=== PATIENT | male | born 1960 | race Caucasian/White ===

== ENCOUNTER 2022-12-16 16:01 | Inpatient (IN) | payer MEDICARE ==
[~2022-12-16] VITALS: Ht 182.9 cm; Wt 159.1 kg
[2022-12-16 16:47] LABS: BASOPHILS % (AUTO) 0.3 % (0-1); EOSINOPHILS # (AUTO) 0.1 X10'3 (0-0.9); EOSINOPHILS % (AUTO) 1.6 % (0-6); LYMPHOCYTES # (AUTO) 2.1 X10'3 (1.1-4.8); LYMPHOCYTES % (AUTO) 21.9 % (21-51); MEAN CORPUSCULAR HEMOGLOBIN 26.5 PG (27.0-31.0); MEAN CORPUSCULAR HGB CONC 32.9 g/dL (33.0-36.5); MEAN CORPUSCULAR VOLUME 80.7 FL (78-98); MEAN PLATELET VOLUME 8.1 FL (7.4-10.4); MONOCYTES # (AUTO) 0.7 X10'3 (0-0.9); MONOCYTES % (AUTO) 7.4 % (2-12); NEUTROPHILS # (AUTO) 6.4 X10'3 (1.8-7.7); NEUTROPHILS % (AUTO) 68.8 % (42-75); PLATELET COUNT 292 X10'3 (140-440); RED BLOOD COUNT 2.62 X10'6 (4.70-6.10); RED CELL DISTRIBUTION WIDTH 16.4 % (11.5-14.5); WHITE BLOOD COUNT 9.4 X10'3 (4.5-11.0)
[2022-12-16 16:50] LABS: HEMATOCRIT 21.2 % (42.0-52.0)
--- NOTE | 2022-12-16 16:59 | NUR ---
RN ATTEMPTING TO US IV AT THIS TIME. PT IS A HARD STICK.
[2022-12-16 17:00] LABS: ALANINE AMINOTRANSFERASE 67 U/L (12-78); ALBUMIN 3.2 G/DL (3.4-5.0); ALBUMIN/GLOBULIN RATIO 0.9 (1.1-1.5); ALKALINE PHOSPHATASE 76 IU/L (46-116); ANION GAP 6 (8-16); ASPARTATE AMINO TRANSFERASE 36 U/L (10-37); BILIRUBIN,TOTAL 0.2 MG/DL (0.1-1.0); BLOOD UREA NITROGEN 22 MG/DL (7-18); BUN/CREATININE RATIO 19.5 (10.0-20.0); CALCIUM 8.5 MG/DL (8.5-10.1); CHLORIDE 104 MMOL/L (99-107); CREATININE 1.13 MG/DL (0.60-1.10); GLUCOSE 138 MG/DL (70-104); POTASSIUM 4.2 MMOL/L (3.5-5.1); SODIUM 139 MMOL/L (135-145); TOTAL CARBON DIOXIDE 29.4 MMOL/L (24-32); TOTAL PROTEIN 6.6 G/DL (6.4-8.2); eCRCL 72 ML/MIN; eGFR 65 ML/MIN
[2022-12-16 17:06] LABS: PRO BRAIN NATRIURETIC PEPTIDE 668 PG/ML (0-125)
[2022-12-16] MEDS ORDERED: pantoprazole 40mg IV 80 MG in normal saline 100ml IV soln 100 ML IV ONE (17:40)
--- NOTE | 2022-12-16 17:46 | NUR ---
PT REPORTS HIS URINE HAS BEEN DARK AND HAS A FOUL SMELL. RN ENTERED ORD FOR UA.
[2022-12-16 17:53] LABS: BILIRUBIN,URINE NEGATIVE (Neg); CLARITY,URINE SLIGHTLY CLOUDY (Clear); COLOR,URINE YELLOW (Yellow); GLUCOSE, URINE NEGATIVE (Neg); KETONES,URINE NEGATIVE (Neg); LEUKOCYTE ESTERASE ,URINE NEGATIVE (Neg); NITRITES, URINE NEGATIVE (Neg); OCCULT BLOOD,URINE NEGATIVE (Neg); PROTEIN,URINE NEGATIVE (Neg); UROBILINOGEN,URINE 0.2 E.U/dL (0.2-1.0)
[2022-12-16 17:54] LABS: UA COLLECTION TYPE CLN CATCH MIDSTREAM
[2022-12-16 17:59] LABS: SQUAMOUS EPITHELIAL CELL,UR NONE SEEN /LPF (FEW)
[2022-12-16 18:00] LABS: BACTERIA,URINE 4+ /HPF (Neg); RBC,URINE 0-2 /HPF (0-2); WBC,URINE 0-4 /HPF (0-4)
[2022-12-16] MEDS ORDERED: CefTRIAXone 2gm/D5W 50ml BAG 50 ML IV ONE (18:25)
--- NOTE | 2022-12-16 18:46 | NUR ---
RN CALLED PHARM AND REQ THAT PROTONIX ORD BE CORRECTED SO IT MAY BE OBTAINED FROM THE [facility].
[2022-12-16] MEDS ORDERED: acetaminophen 325mg tablet PO PRN (18:50)
[2022-12-16] MEDS ORDERED: potassium Cl 20 mEq SR tablet PO PRN ×2 (18:50)
[2022-12-16] MEDS ORDERED: potassium Cl 40MEQ/1/2NS 520ml 520 ML IV PRN (18:50)
[2022-12-16] MEDS ORDERED: PERFLUTREN PROTEIN-A MICROSPHR (Optison) 0.22 MG/ML 3ML VIAL IV ONE (18:50)
[2022-12-16] MEDS ORDERED: magnesium Cl slow-release 64mg tablet PO PRN (18:50)
[2022-12-16] MEDS: normal saline 1000ml 1,000 ML IV SCH (18:50)
[2022-12-16] MEDS ORDERED: magnesium 4gm in 100ml NS 100 ML IV PRN (18:50)
[2022-12-16] MEDS ORDERED: magnesium 2GM in 50ml NS 50 ML IV PRN (18:50)
[2022-12-16] MEDS ORDERED: ondansetron/PF 4mg/2ml inj IV PRN (18:50)
[2022-12-16 18:53] LABS: APTT 26 SECONDS (22-32); PROTHROMBIN TIME 10.6 SECONDS (9.0-12.0)
--- NOTE | 2022-12-16 18:54 | NUR ---
RN INFORMED IV MEDS NEED TO BE GIVEN
[2022-12-16 19:02] LABS: PRO BRAIN NATRIURETIC PEPTIDE 691 PG/ML (0-125); RED BLOOD COUNT 2.61 X10'6 (4.70-6.10); RETICULOCYTE % (AUTO) 3.3 % (0.5-1.5)
[2022-12-16 19:17] LABS: ETHANOL < 10 MG/DL (<10)
[2022-12-16] MEDS: K and/or MAG REPLACEMENT MC SCH (20:00)
[2022-12-16] MEDS: carVEDilol 3.125mg tablet PO SCH (20:00)
[2022-12-16] MEDS: furosemide 40mg/4ml inj IV SCH (20:00)
[2022-12-16] MEDS: hydrALAZINE 20mg/ml inj. IV SCH (20:02)
[2022-12-16 20:24] VITALS: BP 179/90; PULSE 82; RESP 22; TEMP 98.7
[2022-12-16 20:40] VITALS: BP 172/93; PULSE 81; RESP 24; TEMP 98.8
[2022-12-16 21:05] VITALS: BP 117/99; PULSE 85; RESP 20; TEMP 98.6
[2022-12-16 21:37] VITALS: BP 121/84; PULSE 89; RESP 20; TEMP 98.6
[2022-12-16 22:16] VITALS: BP 136/100; PULSE 84; RESP 20; TEMP 98.6
--- NOTE | 2022-12-16 22:49 | NUR ---
PLACED PT ONTO IN-PATIENT BED
[2022-12-17] VITALS (7 sets, daily range): BP systolic 146–181; BP diastolic 75–98; PULSE 78–87; RESP 13–24; TEMP 97.2–98.9; O2SAT 93–98
[2022-12-17] MEDS: hydrALAZINE 20mg/ml inj. IV SCH ×4 (02:00→22:40)
[2022-12-17] MEDS: normal saline 1000ml 1,000 ML IV SCH ×2 (06:37→14:50)
[2022-12-17 07:45] LABS: ANION GAP 7 (8-16); BLOOD UREA NITROGEN 15 MG/DL (7-18); BUN/CREATININE RATIO 15.2 (10.0-20.0); CALCIUM 8.2 MG/DL (8.5-10.1); CHLORIDE 105 MMOL/L (99-107); CREATININE 0.99 MG/DL (0.60-1.10); GLUCOSE 135 MG/DL (70-104); MAGNESIUM 1.9 MG/DL (1.5-2.4); POTASSIUM 3.9 MMOL/L (3.5-5.1); SODIUM 140 MMOL/L (135-145); TOTAL CARBON DIOXIDE 28.2 MMOL/L (24-32); eCRCL 83 ML/MIN; eGFR 76 ML/MIN
[2022-12-17] MEDS: K and/or MAG REPLACEMENT MC SCH ×2 (08:00→20:00)
[2022-12-17 08:01] LABS: BASOPHILS % (AUTO) 0.3 % (0-1); EOSINOPHILS # (AUTO) 0.1 X10'3 (0-0.9); EOSINOPHILS % (AUTO) 1.2 % (0-6); HEMATOCRIT 23.5 % (42.0-52.0); HEMOGLOBIN 7.6 g/dl (14.0-17.9); LYMPHOCYTES % (AUTO) 23.5 % (21-51); MEAN CORPUSCULAR HEMOGLOBIN 26.1 PG (27.0-31.0); MEAN CORPUSCULAR HGB CONC 32.3 g/dL (33.0-36.5); MEAN PLATELET VOLUME 8.4 FL (7.4-10.4); MONOCYTES # (AUTO) 0.7 X10'3 (0-0.9); MONOCYTES % (AUTO) 8.1 % (2-12); NEUTROPHILS # (AUTO) 5.7 X10'3 (1.8-7.7); NEUTROPHILS % (AUTO) 66.9 % (42-75); PLATELET COUNT 280 X10'3 (140-440); RED CELL DISTRIBUTION WIDTH 16.5 % (11.5-14.5); WHITE BLOOD COUNT 8.5 X10'3 (4.5-11.0)
[2022-12-17 09:03] LABS: OCCULT BLOOD STOOL NEGATIVE (Neg)
[2022-12-17] MEDS: CefTRIAXone/D5W-Rocephin 1gm 50 ML IV SCH (10:42)
[2022-12-17] MEDS: carVEDilol 3.125mg tablet PO SCH (10:43)
[2022-12-17] MEDS: furosemide 40mg/4ml inj IV SCH (10:45)
[2022-12-17] MEDS: traMADol 50MG tablet PO PRN (11:04)
--- NOTE | 2022-12-17 11:39 | NUR ---
PAGER ID: [phone] MESSAGE: Cameron Marianela [id number] bp HIGH 160S-180S. iv LASIX GIVEN. AFTERWARDS IV HYDRALAZINE GIVEN. PTS HR OCCAISIONALLY DROPS TO HIGH 30S. LOWEST 36. GAUDENCIO 6541
--- NOTE | 2022-12-17 11:51 | NUR ---
PAGER ID: [phone] MESSAGE: Cameron WILSON [id number] pt c/o 08/25 intermittent L chest pain radiating to his shoulder. States it's difficult to breathe " like hes breathing in smoke." SA02 stable. 02 @L applied for SOB. EKG? Ashlee 1827
--- NOTE | 2022-12-17 12:00 | NUR ---
Hospitalist viewed old and new stat EKG - no new orders.
--- NOTE | 2022-12-17 12:08 | NUR ---
Charge paged for rapid on pt. Hospitalist aware.
[2022-12-17 12:39] LABS: BASOPHILS # (AUTO) 0.1 X10'3 (0-0.2); BASOPHILS % (AUTO) 0.5 % (0-1); EOSINOPHILS # (AUTO) 0.1 X10'3 (0-0.9); EOSINOPHILS % (AUTO) 1.2 % (0-6); HEMATOCRIT 26.4 % (42.0-52.0); HEMOGLOBIN 8.5 g/dl (14.0-17.9); LYMPHOCYTES # (AUTO) 2.2 X10'3 (1.1-4.8); LYMPHOCYTES % (AUTO) 20.8 % (21-51); MEAN CORPUSCULAR HEMOGLOBIN 25.8 PG (27.0-31.0); MEAN CORPUSCULAR HGB CONC 32.2 g/dL (33.0-36.5); MEAN CORPUSCULAR VOLUME 80.2 FL (78-98); MEAN PLATELET VOLUME 8.3 FL (7.4-10.4); MONOCYTES # (AUTO) 1.1 X10'3 (0-0.9); MONOCYTES % (AUTO) 10.2 % (2-12); NEUTROPHILS # (AUTO) 7.1 X10'3 (1.8-7.7); NEUTROPHILS % (AUTO) 67.3 % (42-75); PLATELET COUNT 330 X10'3 (140-440); RED BLOOD COUNT 3.29 X10'6 (4.70-6.10); RED CELL DISTRIBUTION WIDTH 16.7 % (11.5-14.5); WHITE BLOOD COUNT 10.5 X10'3 (4.5-11.0)
[2022-12-17 12:53] LABS: ANION GAP 5 (8-16); BLOOD UREA NITROGEN 15 MG/DL (7-18); BUN/CREATININE RATIO 15.3 (10.0-20.0); CALCIUM 8.7 MG/DL (8.5-10.1); CHLORIDE 103 MMOL/L (99-107); CREATININE 0.98 MG/DL (0.60-1.10); GLUCOSE 137 MG/DL (70-104); POTASSIUM 3.6 MMOL/L (3.5-5.1); SODIUM 138 MMOL/L (135-145); TOTAL CARBON DIOXIDE 30.4 MMOL/L (24-32); eCRCL 84 ML/MIN; eGFR 77 ML/MIN
[2022-12-17 12:54] LABS: ALANINE AMINOTRANSFERASE 63 U/L (12-78); ALBUMIN 3.4 G/DL (3.4-5.0); ALBUMIN/GLOBULIN RATIO 0.9 (1.1-1.5); ALKALINE PHOSPHATASE 74 IU/L (46-116); ASPARTATE AMINO TRANSFERASE 30 U/L (10-37); BILIRUBIN,TOTAL 0.4 MG/DL (0.1-1.0); TOTAL PROTEIN 7.1 G/DL (6.4-8.2)
[2022-12-17] MEDS ORDERED: NO HOME MEDS (15:12)
--- NOTE | 2022-12-17 15:38 | NUR ---
7.2 HR pause. Hospitalist aware. States ok to give IV hydralazine. She will consult cardio.
--- NOTE | 2022-12-17 17:31 | NUR ---
PAGER ID: [phone] MESSAGE: Andrew Ivy [id number] Pt. c/o chest pain again. please call [phone] Ashlee
[2022-12-17] MEDS ORDERED: nitroGLYCERIN 0.4mg SUBLingual tab SL PRN (17:35)
[2022-12-17] MEDS ORDERED: morphine 2 MG/ML inj. syringe IV ONE ×2 (17:35→18:45)
[2022-12-17] MEDS ORDERED: regadenoson 0.4mg/5ml syringe IV ONE (17:35)
--- NOTE | 2022-12-17 17:37 | NUR ---
EKG sent to fax number requested by hospitalist - [phone]
--- NOTE | 2022-12-17 17:40 | NUR ---
states she didn't get EKG through fax sent through text without pt. info.
--- NOTE | 2022-12-17 18:00 | NUR ---
pT. REFUSING ANY NITRO. STATES IT MAKES HIM TOO NAUSEOUS
[2022-12-17] MEDS ORDERED: hydrALAZINE 20mg/ml inj. IV ONE (18:45)
--- NOTE | 2022-12-17 18:54 | NUR ---
rEPORT GIVEN TO Celia AMBROCIO.
--- NOTE | 2022-12-17 18:55 | NUR ---
Patient in room PCU 3017. I have received report from Austin AMBROCIO, and had the opportunity to ask questions and assume patient care.
[2022-12-17] MEDS ORDERED: cloNIDine 0.1 mg tablet PO ONE (19:05)
[2022-12-18] VITALS (16 sets, daily range): BP systolic 108–204; BP diastolic 65–90; PULSE 86–104; RESP 15–24; TEMP 97.2–98.9; O2SAT 91–96
[2022-12-18] MEDS: hydrALAZINE 20mg/ml inj. IV SCH ×4 (02:20→22:10)
[2022-12-18] MEDS: traMADol 50MG tablet PO PRN (02:34)
--- NOTE | 2022-12-18 04:59 | NUR ---
Spoke with provider Abrahamk regarding pt having HTN throughout the night and all antihypertensive meds given and ineffective. Provider gave new order for 5mg Norvasc PO one time only. NRBO.
[2022-12-18] MEDS ORDERED: amLODIPine 5mg tablet PO ONE (05:00)
--- NOTE | 2022-12-18 06:30 | NUR ---
Problems reprioritized. Patient report given, questions answered & plan of care reviewed with Dewayne RN and ismael AMBROCIO.
--- NOTE | 2022-12-18 06:45 | NUR ---
Patient in room PCU 3017. I have received report from Tri AMBROCIO and had the opportunity to ask questions and assume patient care.
[2022-12-18 07:23] LABS: BASOPHILS % (AUTO) 0.4 % (0-1); EOSINOPHILS # (AUTO) 0.1 X10'3 (0-0.9); EOSINOPHILS % (AUTO) 0.5 % (0-6); HEMATOCRIT 25.9 % (42.0-52.0); HEMOGLOBIN 8.3 g/dl (14.0-17.9); LYMPHOCYTES # (AUTO) 2.1 X10'3 (1.1-4.8); LYMPHOCYTES % (AUTO) 20.1 % (21-51); MEAN CORPUSCULAR HEMOGLOBIN 25.9 PG (27.0-31.0); MEAN CORPUSCULAR VOLUME 80.8 FL (78-98); MEAN PLATELET VOLUME 8.2 FL (7.4-10.4); MONOCYTES # (AUTO) 0.8 X10'3 (0-0.9); MONOCYTES % (AUTO) 7.9 % (2-12); NEUTROPHILS # (AUTO) 7.3 X10'3 (1.8-7.7); NEUTROPHILS % (AUTO) 71.1 % (42-75); PLATELET COUNT 286 X10'3 (140-440); RED CELL DISTRIBUTION WIDTH 16.8 % (11.5-14.5); WHITE BLOOD COUNT 10.2 X10'3 (4.5-11.0)
[2022-12-18 07:38] LABS: ALBUMIN 3.2 G/DL (3.4-5.0); ANION GAP 7 (8-16); BLOOD UREA NITROGEN 14 MG/DL (7-18); BUN/CREATININE RATIO 16.1 (10.0-20.0); CALCIUM 8.3 MG/DL (8.5-10.1); CHLORIDE 102 MMOL/L (99-107); CREATININE 0.87 MG/DL (0.60-1.10); GLUCOSE 122 MG/DL (70-104); POTASSIUM 3.7 MMOL/L (3.5-5.1); SODIUM 138 MMOL/L (135-145); TOTAL CARBON DIOXIDE 29.3 MMOL/L (24-32); eCRCL 94 ML/MIN; eGFR 88 ML/MIN
[2022-12-18] MEDS: K and/or MAG REPLACEMENT MC SCH ×2 (08:00→20:00)
[2022-12-18] MEDS: furosemide 40mg/4ml inj IV SCH (08:21)
[2022-12-18] MEDS: CefTRIAXone/D5W-Rocephin 1gm 50 ML IV SCH (08:22)
[2022-12-18] MEDS ORDERED: fentaNYL/PF 50MCG/1 ML 2ML syringe ONE (18:32)
[2022-12-18] MEDS ORDERED: midazolam 1 mg/ML 2ml injection ONE (18:33)
[2022-12-18] MEDS ORDERED: ceFAZolin 1000mg inj ONE ×2 (18:33→19:03)
[2022-12-18] MEDS ORDERED: LIDOCAINE 2%/EPI 1:100,000 inj. Multi-dose 20 ML VIAL ONE (18:33)
--- NOTE | 2022-12-18 18:33 | NUR ---
Problems reprioritized. Patient report given, questions answered & plan of care reviewed with Tri AMBROCIO.
--- NOTE | 2022-12-18 19:00 | NUR ---
pt left floor to seed laboratory assistant.
--- NOTE | 2022-12-18 20:15 | NUR ---
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 Izabel Rodriguez webmethods architect. Pt returned to floor per baseline.
[2022-12-18] MEDS ORDERED: HYDROcodone/acetaminophen 5mg/325mg tablet PO PRN (21:35)
[2022-12-18] MEDS: HYDROcodone/acetaminophen 10/325mg tab PO PRN (22:53)
[2022-12-19 00:45] VITALS: BP 150/76; PULSE 90; RESP 20
[2022-12-19 01:45] VITALS: BP 138/75; PULSE 91; RESP 20
[2022-12-19] MEDS: hydrALAZINE 20mg/ml inj. IV SCH ×3 (02:03→14:00)
[2022-12-19] MEDS: ceFAZolin/D5W- 1GM premix 50 ML IV SCH ×2 (02:04→10:46)
[2022-12-19] MEDS: traMADol 50MG tablet PO PRN (02:13)
[2022-12-19 03:43] VITALS: BP 143/74; PULSE 98; RESP 24; TEMP 97.1; O2SAT 93
[2022-12-19] MEDS: HYDROcodone/acetaminophen 10/325mg tab PO PRN (05:18)
[2022-12-19] MEDS: normal saline 1000ml 1,000 ML IV SCH (05:54)
[2022-12-19 06:00] VITALS: BP 155/64; PULSE 75; RESP 17; TEMP 98.6; O2SAT 92
--- NOTE | 2022-12-19 06:30 | NUR ---
I have received report from LOLLY Bartlett and had the opportunity to ask questions and assume patient care. No distress at this time.
--- NOTE | 2022-12-19 06:40 | NUR ---
Problems reprioritized. Patient report given, questions answered & plan of care reviewed with Janelle HARRISON. Pt stable at shift change.
[2022-12-19 07:31] LABS: HEMOGLOBIN 7.9 g/dl (14.0-17.9); MONOCYTES # (AUTO) 1.1 X10'3 (0-0.9); NEUTROPHILS # (AUTO) 9.9 X10'3 (1.8-7.7); RED CELL DISTRIBUTION WIDTH 17.5 % (11.5-14.5); WHITE BLOOD COUNT 12.9 X10'3 (4.5-11.0)
[2022-12-19 07:33] LABS: BASOPHILS % (AUTO) 0.2 % (0-1); EOSINOPHILS % (AUTO) 0.2 % (0-6); HEMATOCRIT 25.1 % (42.0-52.0); LYMPHOCYTES # (AUTO) 1.9 X10'3 (1.1-4.8); LYMPHOCYTES % (AUTO) 14.4 % (21-51); MEAN CORPUSCULAR HEMOGLOBIN 25.2 PG (27.0-31.0); MEAN CORPUSCULAR HGB CONC 31.5 g/dL (33.0-36.5); MEAN PLATELET VOLUME 8.3 FL (7.4-10.4); MONOCYTES % (AUTO) 8.4 % (2-12); NEUTROPHILS % (AUTO) 76.8 % (42-75); PLATELET COUNT 296 X10'3 (140-440); RED BLOOD COUNT 3.13 X10'6 (4.70-6.10)
[2022-12-19 07:44] LABS: ALBUMIN 3.1 G/DL (3.4-5.0); ANION GAP 5 (8-16); BLOOD UREA NITROGEN 21 MG/DL (7-18); BUN/CREATININE RATIO 20.2 (10.0-20.0); CALCIUM 8.4 MG/DL (8.5-10.1); CHLORIDE 100 MMOL/L (99-107); CREATININE 1.04 MG/DL (0.60-1.10); GLUCOSE 134 MG/DL (70-104); MAGNESIUM 2.1 MG/DL (1.5-2.4); SODIUM 134 MMOL/L (135-145); TOTAL CARBON DIOXIDE 29.3 MMOL/L (24-32); eCRCL 79 ML/MIN; eGFR 72 ML/MIN
[2022-12-19 08:00] VITALS: RESP 15; O2SAT 98
[2022-12-19] MEDS: K and/or MAG REPLACEMENT MC SCH (08:00)
[2022-12-19] MEDS: furosemide 40mg/4ml inj IV SCH (08:46)
[2022-12-19] MEDS: CefTRIAXone/D5W-Rocephin 1gm 50 ML IV SCH (10:45)
[2022-12-19] MEDS ORDERED: FLO0.4C PO ×2 (11:17)
[2022-12-19] MEDS ORDERED: FERR240T5 PO (11:17)
[2022-12-19] MEDS ORDERED: POTA-207 PO (11:17)
[2022-12-19] MEDS ORDERED: LISI5TAB22 PO (11:17)
[2022-12-19] MEDS ORDERED: FURO20TA4 PO ×3 (11:17→15:57)
--- NOTE | 2022-12-19 12:00 | NUR ---
Page Sent promotional table spacer PAGER ID: [phone] MESSAGE: Patient in [address] Andrew Ivy Getting ready for d/c and he is not diaphoretic really bad. BP: 90/60, 84/39, HR-70's, dizziness, seeing white. Can we please order a state H&H? (175 character message out of a maximum of 240)
--- NOTE | 2022-12-19 12:02 | NUR ---
WEIGHING STATION OPERATOR came to me stating the patient is diaphoretic, dizziness feeling, seeing white. Patient has no chest pain, responsive , alert and oriented. Patient is sitting up in chair at this time accompanied w/ staff. The microwave radio technician states their is nothing abnormal noted during this time on the TELE. Patient HR in the 70's, BP manual: is 90/60. Paged Dr. Leigh to await for reponse.
[2022-12-19 15:00] VITALS: BP 108/54; PULSE 92; RESP 18
--- NOTE | 2022-12-19 17:49 | NUR ---
Patient discharged alert and oriented x4, stable for baseline. Patient understands to monitor for s/s of post pace maker procedure issues, and to stay compliant w/ medications as directed. Information regarding the pacemaker provided to the patient that was in the binder. Provided educational tools for healthy life style choices including smoking sensation. IV x2 d/c'd from the left arm, cannulas intact. Wheeled down to the lobby accompanied by family.
== END 2022-12-19 17:43 | disposition home health service (06) | DRG 812 ==
LOC: ER 16:01 → ED HOLD 18:54 → EDBEDREQ 12-17 05:30 → PCU 3S 12-17 07:45
PROVIDERS: ADMIT Internal Medicine; ATTEND Internal Medicine
PROC: 30233N1 Transfusion of Nonautologous Red Blood Cells into Peripheral Vein, Percutaneous Approach (ICD-10-PCS; principal; 2022-12-16)
DX: D64.9 Anemia, unspecified (principal); N39.0 Urinary tract infection, site not specified; I50.32 Chronic diastolic (congestive) heart failure; I11.0 Hypertensive heart disease with heart failure; R32 Unspecified urinary incontinence; F17.210 Nicotine dependence, cigarettes, uncomplicated; Z71.6 Tobacco abuse counseling
CPT/HCPCS: 33208; 36415; 36430; 71045; 80048; 80053; 80320; 81001; 82272; 83605; 83735; 83880; 84145; 84484; 85025; 85045; 85610; 85730; 86885; 86900; 86901; 86920; 87040; 87081; 93005; 93306; 97161; 97530; 99152; 99153; 99285; A4565; A4615; A6258; C1785; C1898; C9113; G0378; J0360; J0690; J0696; J1940; J2250; J2270; J2405; J3010; J3490; J7030; J7040; P9016